=== PATIENT | male | born 1950 | race Caucasian/White ===

== ENCOUNTER → 2019-04-21 13:52 | Outpatient (BNVA) | payer MEDICARE, OTHER, SELFPAY | PROVIDERS: Family Provider Family Medicine; PCP Family Medicine; Visit Provider Specialist | DX: G43.711 Chronic migraine without aura, intractable, with status migrainosus (principal); Z87.891 Personal history of nicotine dependence | CPT/HCPCS: 64615; J0585 ==

== ENCOUNTER → 2019-07-28 13:55 | Outpatient (BNVA) | payer MEDICARE, OTHER, SELFPAY | PROVIDERS: Family Provider Family Medicine; PCP Family Medicine; Visit Provider Specialist | DX: G43.711 Chronic migraine without aura, intractable, with status migrainosus (principal) | CPT/HCPCS: 64615; J0585 ==

== ENCOUNTER → 2019-10-17 09:05 | Outpatient (BNVA) | payer MEDICARE, OTHER, SELFPAY | PROVIDERS: Family Provider Family Medicine; PCP Family Medicine; Visit Provider Specialist | DX: Z85.46 Personal history of malignant neoplasm of prostate; R39.9 Unspecified symptoms and signs involving the genitourinary system | CPT/HCPCS: 81001; 84153 ==

== ENCOUNTER → 2019-11-11 09:59 | Outpatient (BNVA) | payer MEDICARE, OTHER, SELFPAY | PROVIDERS: Family Provider Family Medicine; PCP Family Medicine; Visit Provider Specialist | DX: G43.711 Chronic migraine without aura, intractable, with status migrainosus (principal) | CPT/HCPCS: 64615; 96372; J0585; J1885 ==

== ENCOUNTER → 2020-02-09 10:52 | Outpatient (BNVA) | payer MEDICARE, OTHER, SELFPAY | PROVIDERS: Family Provider Family Medicine; PCP Family Medicine; Visit Provider Specialist | DX: G43.711 Chronic migraine without aura, intractable, with status migrainosus (principal); Z87.891 Personal history of nicotine dependence | CPT/HCPCS: 64615; 99213; J0585 ==

== ENCOUNTER 2020-02-17 16:14 | Outpatient (CLI) | payer MEDICARE, OTHER, SELFPAY ==
--- NOTE | 2020-02-17 16:22 | MR_ITS ---
WS: [id number] MRI THORACIC SPINE WITHOUT CONTRAST TECHNIQUE: Sagittal T1, T2 and STIR imaging. Axial T2 imaging. Noncontrast imaging obtained. CLINICAL INFORMATION: THORACIC PAIN COMPARISON: None. FINDINGS: Mild thoracic curve. Mild thoracic kyphosis. No acute compression fractures. Disc space heights and v ertebral body heights well-preserved. Mild bilateral T10-11 bony foraminal narrowing. Mild disc bulging T11-T12 with slight effacement of v entral thecal sac. Mild right foraminal narrowing at this level. Moderate facet arthropathy lower tho racic spine. Mild central canal stenosis at L1-2 with mild bilateral foraminal narrowing. Normal thoracic aorta. Adrenal glands are normal. Right renal cyst measuring 3.1 CM. MR/MR thoracic spin wo con* [id number] IMPRESSION: 1. Mild thoracic curve. No acute compression. No high-grade central canal sten osis. 2. Cord signal is normal. 3. Disc space heights and vertebral body heights are well preserved. No acute compression fractures. 4. Mild disc bulging T11-T12 with slight effacement of ventral thecal sac. Mil d right T11-T12 foraminal narrowing. 5. Mild central canal stenosis L1-2 with mild bilateral foraminal narrowing le ft greater than right.
--- NOTE | 2020-02-17 17:00 | XRR_ITS ---
PROCEDURE INFORMATION: Exam: XR Lumbosacral Spine, 2 or 3 Views Exam date and time: 02/17/2020 5:34 PM Age: 69 years old Clinical indication: Low back pain; Additional info: Lumbar spondylolisthesis TECHNIQUE: Imaging protocol: XR of the lumbosacral spine, 2 or 3 views. COMPARISON: MRI Lumbar Spine w/o [id number] 12/10/2018 2:19 PM FINDINGS: Bones/joints: No visible acute osseous abnormality or fracture. No visible spondylolysis or spondylolisthesis. Degenerative disease and degenerative disc disease throughout most advanced L3/L4 and L4/L5. Facet arthrosis. Soft tissues: Unremarkable for age. XR/XR lumbar spine f/e only [id number] IMPRESSION: Nonacute.
== END 2020-02-17 16:15 | disposition home or self-care (01) ==
LOC: RADSHAW 16:18
PROVIDERS: Family Provider Family Medicine; PCP Family Medicine; Visit Provider Anesthesiology Pain Medicine
DX: M43.16 Spondylolisthesis, lumbar region (principal); M51.24 Other intervertebral disc displacement, thoracic region; M48.061 Spinal stenosis, lumbar region without neurogenic claudication
CPT/HCPCS: 72120; 72146

== ENCOUNTER → 2020-02-28 10:28 | Outpatient (BNVA) | payer MEDICARE, OTHER, SELFPAY | PROVIDERS: Family Provider Family Medicine; PCP Family Medicine; Referring Provider Specialist; Visit Provider Anesthesiology Pain Medicine | DX: M54.2 Cervicalgia (principal); M54.9 Dorsalgia, unspecified | CPT/HCPCS: 99204 ==

== ENCOUNTER 2020-02-29 09:38 | Outpatient (CLI) | payer MEDICARE, OTHER, SELFPAY ==
--- NOTE | 2020-02-29 10:03 | MR_ITS ---
WS: [id number] MRI LUMBAR SPINE NONCONTRAST TECHNIQUE: Sagittal T1, T2 and STIR imaging. Axial T1 and T2 imaging. CLINICAL INFORMATION: LUMBAR SPINAL STENOSIS COMPARISON: MRI 9 6 60 FINDINGS: Left convex lumbar scoliosis. No acute compression.Moderate central canal stenosis L2-L3, L3-L4, appe ars unchanged. Slight retrolisthesis L1 on L2, L2 on L3, L3 on L4. Disc space narrowing worse L4-5. A lignment is unchanged since 2019 L1-L2: Mild disc bulging with narrowing of the left subarticular recess. Impingement on traversing le ft L2 nerve root. Moderate facet arthropathy. Mild left and no significant right foraminal narrowing. L2-L3: Mild disc bulging with osteophytic ridging. Moderate facet arthropathy ligament flavum hypertr ophy. Moderate central canal stenosis. Left foraminal protrusion L2-3 with moderate left foraminal na rrowing. Right foramen is patent. L3-L4: Disc osteophyte complex with endplate ridging. Impingement traversing right L4 nerve root. Mod erate central canal stenosis. Severe right and mild left foraminal narrowing. L4-L5: Mild disc osteophytic ridging. Narrowing of the right subarticular recess with impingement tra versing right L5 nerve root. Moderate right foraminal narrowing. Mild left foraminal narrowing. Moder ate facet arthropathy. L5-S1: Mild disc bulging with osteophytic ridging. Moderate left and no significant right foraminal n arrowing. Mild facet arthropathy. Visualized pelvic bony structures: Normal. Paravertebral soft tissues: Normal. MR/MR lumbar spine wo con* [id number] IMPRESSION: 1. Overall no significant changes since 2019. 2. Lumbar scoliosis. No acute compression fractures. 3. Mild central canal stenosis L1-2 and moderate central canal stenosis L2-L3 and L3-L4 worse at L2-3 unchanged from previous. 4. Multilevel bony foraminal narrowing worse at left L2-3, right L3-4, right L 4-5, and left L5-S1. 5. Impingement on the left subarticular recess at L1-2. 6. Disc bulging L3-4 with impingement on traversing right L4 nerve root . 7. Mild disc bulging with impingement on the right L4-5 subarticular recess an d traversing right L5 nerve root. 8. Moderate facet arthropathy L2-L3, L3-L4, L4-L5.
== END 2020-02-29 09:39 | disposition home or self-care (01) ==
LOC: RADWPI 09:45
PROVIDERS: PCP Family Medicine; Visit Provider Anesthesiology Pain Medicine
DX: M48.061 Spinal stenosis, lumbar region without neurogenic claudication (principal); M12.88 Other specific arthropathies, not elsewhere classified, other specified site; M51.26 Other intervertebral disc displacement, lumbar region
CPT/HCPCS: 72148

== ENCOUNTER 2020-10-01 19:41 | Emergency (ER) | payer MEDICARE, OTHER, SELFPAY ==
[2020-10-01 20:32] VITALS: BP 139/76; PULSE 61; RESP 18; TEMP 36.9; O2SAT 97; BMI 25.7
--- NOTE | 2020-10-01 20:55 | CTR_ITS ---
PROCEDURE INFORMATION: Exam: CT Abdomen And Pelvis With Contrast Exam date and time: 10/01/2020 8:55 PM Age: 70 years old Clinical indication: Nausea and vomiting and other: Diarrhea; Abdominal pain; Localized; Left lower quadrant (llq); Prior surgery; Surgery type: Gb, hernia, spinal stimulator; Additional info: Llq pain, n/v TECHNIQUE: Imaging protocol: Computed tomography of the abdomen and pelvis with contrast. Radiation optimization: All CT scans at this facility use at least one of these dose optimization techniques: automated exposure control; mA and/or kV adjustment per patient size (includes targeted exams where dose is matched to clinical indication); or iterative reconstruction. Contrast material: OMNI 300; Contrast volume: 95 ml; Contrast route: INTRAVENOUS (IV); COMPARISON: 1. CT abdomen pelvis w con* [id number] 08/14/2017 9:11 PM 2. US Pelvis Lmt [place] Male [id number] 12/02/2017 7:09 AM RADIATION DOSE METRICS: Total DLP (mGy-cm): 1503.51 FINDINGS: Tubes, catheters and devices: Spinal cord stimulator overlies the right hip. Lungs: The lung bases are clear. No effusion Mediastinal space: There is a small hiatal hernia. Liver: Normal. No mass. Gallbladder and bile ducts: There has been a cholecystectomy. Pancreas: Normal. No ductal dilation. Spleen: Normal. No splenomegaly. Adrenal glands: Normal. No mass. Kidneys and ureters: 3 cm right renal cyst. Stomach and bowel: Unremarkable. No obstruction. No mucosal thickening. Appendix: The appendix is partially calcified and fluid-filled. No periappendiceal fat stranding. Intraperitoneal space: Unremarkable. No free air. No significant fluid collection. Vasculature: Mild atherosclerotic disease of the aorta without aneurysm. Lymph nodes: Unremarkable. No enlarged lymph nodes. Urinary bladder: Unremarkable as visualized. Reproductive: Brachytherapy seeds are present in the prostate. Bones/joints: Unremarkable. No acute fracture. Soft tissues: Unremarkable. CT/CT abdomen pelvis w con* [id number] IMPRESSION: 1. Dilated, fluid-filled appendix with calcified wall, consistent with mucocele. 2. There is a small hiatal hernia. 3. Mild atherosclerotic disease of the aorta without aneurysm. COMMENTS: Consistent with the [employer]'s Incidental Findings Committee white paper (J Am Hesham Radiol 2018): Any incidental renal lesion less than 1 cm or classified as too small to characterize, or any incidental cystic renal lesion characterized as simple-appearing, is likely benign. No follow-up imaging is recommended for these lesions per consensus recommendations based on imaging criteria. Radiation Dose CTDIVOL = (mGy): DLP = 1503.51 (mGy-cm)
--- NOTE | 2020-10-01 20:57 | W.ED.ABDPA2 ---
HPI - Abdominal Pain General: Chief Complaint: Abdominal Pain Stated Complaint: ab pain Time Seen by Provider: 10/01/20 20:45 History of Present Illness: HPI narrative: Patient is a 70-year-old male comes to the ED with abdominal pain. Patient has a history of chronic back pain and prostate cancer. Patient says that symptoms started 3 days ago. He says the pain is located in the left lower quadrant of the abdomen and it radiates to his left lower back. Rates the pain currently an 8 out of 10. He says the symptoms get worse when he standing up and moving. He also endorses having some nausea for the past 3 days but had a couple episodes of emesis today. He also endorses having some constipation issues but did take some Dulcolax over the past couple days and had some diarrhea yesterday. Denies any blood in the stool. Denies fever, chills, chest pain, shortness of breath, dysuria or hematuria. Associated Symptoms: Reports constipation, nausea and vomiting; Denies chills, diarrhea, dysuria, fever(s), hematochezia and hematuria Review of Systems Const: Denies: fever(s), chills or fatigue Eyes: Denies: change in vision or eye discomfort ENMT: Denies: throat pain, odynophagia, nasal discharge or nasal congestion Card: Denies: chest pain, palpitations, edema, swelling of feet/ankles, dyspnea on exertion or orthopnea Resp: Denies: dyspnea, productive cough or non-productive cough GI: Reports: abdominal pain, nausea, vomiting and constipation; Denies: diarrhea or hematochezia : Denies: flank pain, difficulty urinating, dysuria or hematuria Musc: Reports: back pain (Chronic); Denies: neck pain or extremity swelling Skin/Breast: Denies: rash or new lesions Neuro: Denies: headache(s), numbness in extremities or weakness in extremities PFSH ED PFSH: Medical History Cervical radiculopathy due to degenerative joint disease of spine Erectile dysfunction History of prostate cancer Lower urinary tract symptoms (LUTS) Lumbar disc disease Spondylolisthesis of cervical region Family History Other CAD (coronary artery disease) Cancer Parkinson disease Social History Smoking and tobacco status: former smoker Alcohol intake: current Alcohol intake frequency: holidays/special occasions only Household members: spouse Marital status: Current occupational status: retired History of recent travel: No Physical Exam Const: COMMON NORMALS: no acute distress, patient oriented x3 and alert GENERAL APPEARANCE: cooperative and comfortable HENMT: COMMON NORMALS: normocephalic HEAD & SCALP: normocephalic MOUTH: Normal oral and palatal mucosa present THROAT: posterior oropharynx normal and uvula midline Neck/C-Spine: COMMON NORMALS: supple GENERAL: Yes normal visual inspection Resp: COMMON NORMALS: normal respiratory effort, No retractions, No use of accessory muscles and clear to auscultation bilaterally AUSCULTATION: clear to auscultation bilaterally Cardio: COMMON NORMALS: regular rate, regular rhythm, S1 normal heart sound present, S2 normal heart sound present, No gallops present (Cardio), No clicks present (Cardio), No murmurs present (Cardio) and Peripheral pulses 2+ throughout RATE: regular rate RHYTHM: regular rhythm HEART SOUNDS: S1 normal heart sound present and S2 normal heart sound present PERIPHERAL PULSES: Peripheral pulses 2+ throughout GI: COMMON NORMALS: Normal to inspection, nondistended, normoactive bowel sounds present, Soft to palpation and no masses PALPATION: Yes Soft to palpation and Yes Tenderness to palpation present (GI) Details: LLQ : BLADDER/KIDNEY EXAM: Yes CVA tenderness on the left Back/Pelvis: GENERAL BACK: Yes CVA tenderness Extremity: COMMON NORMALS: normal to inspection and no pedal edema Neuro: COMMON NORMALS: patient oriented x3 SENSORIUM/ORIENTATION: Yes alert GAIT: Yes Normal gait present Skin: GENERAL SKIN EXAM: dry skin Course Consultations: Consultation #1: I contacted Dr. Ruiz to tell him about patient case and the CT findings of mucocele of appendix. He recommended patient have outpatient follow-up with him for further evaluation. Vital Signs: Vital signs: Vital Signs Temperature 98.5 F 10/01/20 20:32 Pulse Rate 68 10/01/20 23:46 Respiratory Rate 16 10/01/20 23:46 Blood Pressure 118/70 10/01/20 23:46 Pulse Oximetry 98 10/01/20 23:46 MDM - Abdominal Pain MDM Narrative: Medical decision making narrative: Patient is a 70-year-old male comes to the ED with left lower quadrant abdominal pain. He also is having some episodes of nausea and vomiting. Exam findings showed a nontoxic appearing male lying comfortably on exam bed. He has some left lower quadrant abdominal tenderness with some left CVA tenderness as well. Vitals stable. Labs are unremarkable. CT of abdomen showed a mucocele of the appendix and no other acute findings. Contact Dr. Ruiz and told outpatient case and he recommended to have patient follow-up with him at his clinic. I placed order with pillowcase cleaner for patient to be referred to Dr. Ruiz for follow-up. Patient symptoms were controlled with IV fluids, morphine and Zofran. Patient was diagnosed with abdominal pain and mucocele of the appendix. Patient was sent home with a prescription for Zofran and a written prescription for [place] 5-325 mg number 8 tablets dispensed. I told patient that case management will be contacting him in the next several days set up appoint with general surgery. Return to ED precautions given. Patient understood and agreed with plan. Lab Data: Attestation: I reviewed the patient's lab results. Labs: Lab Results 10/01/20 10/01/20 10/01/20 Range/Units 20:59 20:59 21:15 WBC 8.0 (4.0-10.0) 10^3/ uL RBC 4.32 (4.1-5.3) 10^6/u L Hgb 14.2 (11.7-16.6) g/dL Hct 42.6 (42.0-52.0) % MCV 98.6 H (80-94) fL MCH 32.9 (28.0-34.0) pg MCHC 33.3 (30.0-36.0) g/dL RDW 12.8 (12.1-15.1) % Plt Count 212 (130-400) 10^3/c mm MPV 10.8 H (7.4-10.4) fL Neut % (Auto) 75.9 % Lymph % (Auto) 17.2 % Graham % (Auto) 6.1 % Eos % (Auto) 0.1 % Baso % (Auto) 0.6 % Neut # (Auto) 6.08 (1.8-7.7) 10^3/u L Lymph # (Auto) 1.4 (0.8-4.8) 10^3/u L Graham # (Auto) 0.5 (0.2-0.9) 10^3/u L Eos # (Auto) 0.0 (0.0-0.8) 10^3/u L Baso # (Auto) 0.1 (0.0-0.1) 10^3/u L Nucleated RBC % (a uto) 0 % Nucleated RBCs # 0.0 /100WBC Sodium 142 (136-145) mmol/L Potassium 3.8 (3.5-5.1) mmol/L Chloride 105 (98-107) mmol/L Carbon Dioxide 26 (22-29) mmol/L Anion Gap 14.8 (5-19) BUN 14 (8-23) mg/dL Creatinine 0.8 (0.7-1.2) mg/dL GFR Calculation 96.1 (90-130) mL/min Glucose 92 (65-115) mg/dL Calculated Osmolal ity 294 (285-295) mOsm/k g Calcium 9.1 (8.5-10.5) mg/dL Total Bilirubin 1.5 H (0.15-1.2) mg/dL AST 21 (0-40) U/L ALT 15 (0-41) U/L Alkaline Phosphata se 93 (40-130) IU/L Total Protein 6.8 (6.6-8.7) g/dL Albumin 4.3 (3.5-5.2) g/dL Globulin 2.5 (1.3-4.6) g/dL Lipase 13 (13-60) U/L Urine Color Yellow (Yellow) Urine Appearance Clear (CLEAR) Urine pH 5 (5-7) Ur Specific Gravit y 1.020 (1.005-1.030) Urine Protein Neg (Negative) Urine Glucose (UA) Norm (Normal) Urine Ketones 1+ H (Negative) Urine Blood Neg (Negative) Urine Nitrate Negative (Negative) Urine Bilirubin Neg (Negative) Urine Urobilinogen 1 H (Negative) mg/dL Ur Leukocyte Bernarda ase Negative (Negative) Imaging Data ^: CT Abd/Pel: Attestation: I personally reviewed and interpreted this imaging study as follows: Radiologist's impression: [address] [address] [address] Scan Report Signed Patient: Yuri Ryan Unit #: [id number] : 1950 Age/Sex: 70 / M ADM Date: 10/01/20 Loc: ER Room/Bed: Attending Dr: Ordering Provider/Ordering MD: Mike Walsh Date of Service: 10/01/20 Procedure(s): CT abdomen pelvis w con* [id number] Accession Number(s): [id number] Report Number: [id number] PROCEDURE INFORMATION: Exam: CT Abdomen And Pelvis With Contrast Exam date and time: 10/01/2020 8:55 PM Age: 70 years old Clinical indication: Nausea and vomiting and other: Diarrhea; Abdominal pain; Localized; Left lower quadrant (llq); Prior surgery; Surgery type: Gb, hernia, spinal stimulator; Additional info: Llq pain, n/v TECHNIQUE: Imaging protocol: Computed tomography of the abdomen and pelvis with contrast. Radiation optimization: All CT scans at this facility use at least one of these dose optimization techniques: automated exposure control; mA and/or kV adjustment per patient size (includes targeted exams where dose is matched to clinical indication); or iterative reconstruction. Contrast material: OMNI 300; Contrast volume: 95 ml; Contrast route: INTRAVENOUS (IV); COMPARISON: 1. CT abdomen pelvis w con* [id number] 08/14/2017 9:11 PM 2. US Pelvis Lmt or Male [id number] 12/02/2017 7:09 AM RADIATION DOSE METRICS: Total DLP (mGy-cm): 1503.51 FINDINGS: Tubes, catheters and devices: Spinal cord stimulator overlies the right hip. Lungs: The lung bases are clear. No effusion Mediastinal space: There is a small hiatal hernia. Liver: Normal. No mass. Gallbladder and bile ducts: There has been a cholecystectomy. Pancreas: Normal. No ductal dilation. Spleen: Normal. No splenomegaly. Adrenal glands: Normal. No mass. Kidneys and ureters: 3 cm right renal cyst. Stomach and bowel: Unremarkable. No obstruction. No mucosal thickening. Appendix: The appendix is partially calcified and fluid-filled. No periappendiceal fat stranding. Intraperitoneal space: Unremarkable. No free air. No significant fluid collection. Vasculature: Mild atherosclerotic disease of the aorta without aneurysm. Lymph nodes: Unremarkable. No enlarged lymph nodes. Urinary bladder: Unremarkable as visualized. Reproductive: Brachytherapy seeds are present in the prostate. Bones/joints: Unremarkable. No acute fracture. Soft tissues: Unremarkable. CT/CT abdomen pelvis w con* [id number] IMPRESSION: 1. Dilated, fluid-filled appendix with calcified wall, consistent with mucocele. 2. There is a small hiatal hernia. 3. Mild atherosclerotic disease of the aorta without aneurysm. COMMENTS: Consistent with the [employer]'s Incidental Findings Committee white paper (J Am Hesham Radiol 2018): Any incidental renal lesion less than 1 cm or classified as too small to characterize, or any incidental cystic renal lesion characterized as simple-appearing, is likely benign. No follow-up imaging is recommended for these lesions per consensus recommendations based on imaging criteria. Radiation Dose CTDIVOL = (mGy): DLP = 1503.51 (mGy-cm) Dictated By: Joseph Fernandez Signed By: Joseph Fernandez Signed Date/Time: 10/01/202232 DD/ 31 Discharge Plan Discharge Patient Disposition: Home Clinical Impression: Mucocele of appendix Abdominal pain Qualifiers: Abdominal location: left lower quadrant Qualified Code(s): R10.32 - Left lower quadrant pain Condition: Stable Prescriptions: New ondansetron 4 mg tablet,disintegrating 4 mg PO Q8H PRN (Reason: nausea and vomiting) Qty: 15 RF: 0 No Action Botox 100 unit recon soln SUBCUT RF: 0 gabapentin 600 mg tablet 600 mg PO QDAY RF: 0 ropinirole 0.5 mg tablet 0.5 mg PO QDAY RF: 0 Zyrtec 10 mg capsule PO RF: 0 ibuprofen [IBU] 800 mg tablet 800 mg PO Q6H RF: 0 meclizine 25 mg tablet 25 mg PO BID RF: 0 pantoprazole 40 mg tablet,delayed release (DR/EC) 40 mg PO QDAY RF: 0 sumatriptan succinate 50 mg tablet 50 mg PO ONCE RF: 0 tamsulosin 0.4 mg capsule 0.4 mg PO QDAY RF: 0 fluticasone furoate 50 mcg/actuation blister with device INHALATION RF: 0 sildenafil 100 mg tablet See Rx Instructions .Route .COMPLEX Qty: 20 RF: 6 Discharge Orders: Discharge ED (Routine); Ordered 10/01/20 Ordered By: Mike Walsh Referrals: Dalia Mo MD [Primary Care Provider] - Discharge Diet: Regular Discharge Activity: Increase activity as tolerated Patient Instructions: Abdominal Pain (ED) Activity Restrictions/Additional Instructions: Follow-up with medical provider as directed. Case management should be contacting you in the next several days to set up an appointment with general surgery for reevaluation. Continue taking home medications as prescribed. Return to the ER or your medical provider if condition worsens. Please read and understand discharge instructions. Thank you for choosing [facility] for your healthcare needs today. Please realize this is an emergency room and that we are providing you with a medical screening exam and this may not be complete and all inclusive of all the testing and or work up that you may need to determine your ailment or severity of your illness. It is very important that you follow up as instructed or that you return to the Emergency Department should you have concerns or if your condition changes or worsens in any way. Coding Level of Care Code ED Organizational Effectiveness Consultant for Chg Fwd Exam Comprehensive
[2020-10-01 21:02] LABS: Basophils # 0.1 10^3/uL (0.0-0.1); Basophils % 0.6 %; Eosinophils % 0.1 %; Hematocrit 42.6 % (42.0-52.0); Hemoglobin 14.2 g/dL (11.7-16.6); Lymphocytes # 1.4 10^3/uL (0.8-4.8); Lymphocytes % 17.2 %; Mean Corpuscular HGB Conc 33.3 g/dL (30.0-36.0); Mean Corpuscular Hemoglobin 32.9 pg (28.0-34.0); Mean Corpuscular Volume 98.6 fL (80-94); Mean Platelet Volume 10.8 fL (7.4-10.4); Monocytes # 0.5 10^3/uL (0.2-0.9); Monocytes % 6.1 %; Neutrophils # 6.08 10^3/uL (1.8-7.7); Neutrophils % 75.9 %; Nucleated Red Blood Cells % 0 %; Platelet Count 212 10^3/cmm (130-400); Red Blood Count 4.32 10^6/uL (4.1-5.3); Red Cell Distribution Width 12.8 % (12.1-15.1)
[2020-10-01] MEDS: ondansetron 2 mg/ML SDV 2 mL 4 MG IVP (21:13)
[2020-10-01] MEDS: sodium chloride 0.9% 1,000 ML 999 ML IV (21:13)
[2020-10-01 21:14] VITALS: RESP 18; O2SAT 99
[2020-10-01] MEDS: morphine 4 mg/mL SDV 1 mL IVP ×2 (21:14→22:05)
[2020-10-01 21:16] VITALS: BP 146/77; PULSE 60; RESP 18; O2SAT 99
[2020-10-01 21:19] LABS: Alanine Aminotransferase 15 U/L (0-41); Albumin Level 4.3 g/dL (3.5-5.2); Alkaline Phosphatase 93 IU/L (40-130); Anion Gap 14.8 (5-19); Aspartate Amino Transferase 21 U/L (0-40); Blood Urea Nitrogen 14 mg/dL (8-23); Calcium 9.1 mg/dL (8.5-10.5); Carbon Dioxide 26 mmol/L (22-29); Chloride 105 mmol/L (98-107); Globulin 2.5 g/dL (1.3-4.6); Glomerular Filtration Rate 96.1 mL/min (90-130); Glucose 92 mg/dL (65-115); Lipase 13 U/L (13-60); Osmolality Calculated 294 mOsm/kg (285-295); Potassium 3.8 mmol/L (3.5-5.1); Sodium 142 mmol/L (136-145); Total Bilirubin 1.5 mg/dL (0.15-1.2); Total Protein 6.8 g/dL (6.6-8.7)
[2020-10-01 21:31] LABS: Add Urine Microscopic? NO; Charge for UA Resulting for Rev
[2020-10-01 21:38] LABS: Bilirubin Urine Neg (Negative); Blood Urine Neg (Negative); Glucose Urine UA Norm (Normal); Ketones Urine 1+ (Negative); Leukocyte Esterase Urine Negative (Negative); Nitrate Urine Negative (Negative); Protein Urine Neg (Negative); Urine Appearance Clear (CLEAR); Urine Color Yellow (Yellow); Urobilinogen Urine 1 mg/dL (Negative); pH Urine 5 (5-7)
[2020-10-01] MEDS: iohexol 300 mg/mL 100 mL Btl IV (21:44)
[2020-10-01 22:05] VITALS: RESP 18; O2SAT 97
[2020-10-01 22:10] VITALS: BP 157/83; PULSE 55; RESP 18; O2SAT 94
[2020-10-01 23:46] VITALS: BP 118/70; PULSE 68; RESP 16; O2SAT 98
--- NOTE | 2020-10-02 08:13 | PC.SOCIAL ---
Gen surgery emailed regarding referral per Dr Walsh to for Mucocele Appendix.
--- NOTE | 2020-10-17 13:52 | DCPLANNER ---
Patient had a follow up appointment scheduled for 10.12.[address] Ruiz at [facility] General Surgery - patient did attend appointment.
== END 2020-10-02 | disposition home or self-care (01) ==
PROVIDERS: Emergency Medicine; Emergency Provider Physician Assistant; PCP Family Medicine
DX: R10.32 Left lower quadrant pain (principal); K38.8 Other specified diseases of appendix; Z85.46 Personal history of malignant neoplasm of prostate; Z87.891 Personal history of nicotine dependence
CPT/HCPCS: 74177; 80053; 81003; 83690; 85025; 96361; 96374; 96375; 96376; 99284; J2270; J2405; J7030; Q9967

== ENCOUNTER → 2020-10-12 12:25 | Outpatient (BNVA) | payer MEDICARE, OTHER, SELFPAY | PROVIDERS: PCP Family Medicine; Visit Provider Surgery | DX: K38.8 Other specified diseases of appendix (principal); Z20.822 Contact with and (suspected) exposure to COVID-19 | CPT/HCPCS: 87635 ==

== ENCOUNTER 2020-10-18 07:10 | Day surgery (SDC) | payer MEDICARE, OTHER, SELFPAY ==
[2020-10-17 09:48] VITALS: BMI 24.7
[2020-10-18] VITALS (8 sets, daily range): BP systolic 98–130; BP diastolic 44–75; PULSE 55–68; RESP 13–20; TEMP 36.2–36.7; O2SAT 92–97
--- NOTE | 2020-10-18 07:43 | W.PM.OPSUD ---
Surgery/Procedure H&P Update DATE OF PROCEDURE: October 18, 2020 DATE H&P PERFORMED: 10/12/20 H&P UPDATE INFORMATION: I have reviewed H&P completed within last 30 days, I have examined patient prior to procedure and No changes to prior documentation PREOP DIAGNOSIS: Mucocele appendix PLANNED PROCEDURE: Operation Date: 10/18/20 08:35 Proposed Procedures p Laparoscopic Appendectomy 50527 K38.8(Not Applicable) - Freeman Ruiz MD
[2020-10-18] MEDS: scopolamine 1.5 Patch 1 PATCH TRANSDERMA (07:49)
[2020-10-18] MEDS: sodium chloride 0.9% 1,000 ML 30 ML IV (07:49)
--- NOTE | 2020-10-18 08:04 | ANES.PREANE2 ---
Pre-Anesthetic Assessment Pre-Anesthetic Assessment: Height/Weight: Height 1.83 m Weight 82.554 kg Temp Pulse Resp BP Pulse Ox 98.1 F 67 18 130/75 97 10/18/20 07:29 10/18/20 07:29 10/18/20 07:29 10/18/20 07:29 10/18/20 07:29 Preop Diagnosis: Mucocele appendix Proposed Procedure: Operation Date: 10/18/20 08:35 Proposed Procedures p Laparoscopic Appendectomy 65794 K38.8(Not Applicable) - Freeman Ruiz MD Was Beta Minnie taken within 24 hours: N/A Last intake: Intake Last Liquid Date 10/17/20 Last Liquid Time 17:30 Last Solid Date 10/17/20 Last Solid Time 17:30 Social: Social History: No alcohol and No tobacco Exam: Pre-Anes Outpt Exam: alert, oriented x 3, clear to auscultation bilaterally and regular rate & rhythm Airway: Submandibular: WNL Cervical ROM: WNL MP: 2 Dentition: Full GI: GI: GERD Musc/skel: Musc/skel: Lower Back Pain Neuropsych: Neuropsych: OTOOLE Anesthetic Plan: ASA status: 2 Anesthesia: General Risk of > 500 ml blood loss (7ml/kg in children): No Meds/Allergies Current Medications: Current Medications Generic Name Dose Route Start Last Admin Trade Name Freq PRN Reason Stop Dose Admin Sodium Chloride 1,000 mls @ 30 ml s/hr 10/18/20 07:30 10/18/20 07:49 Sodium Chloride 0.9% IV 10/19/20 07:29 30 mls/hr .Q24H ARIE Administration PFSH Anesthesia PFSH: Medical History (Updated 10/12/20 @ 11:56 by Freeman Ruiz MD) Cervical radiculopathy due to degenerative joint disease of spine Chronic migraine without aura, intractable, with status migrainosus Erectile dysfunction History of cholesteatoma History of prostate cancer Lower urinary tract symptoms (LUTS) Lumbar disc disease Sensorineural hearing loss, bilateral Spinal cord stimulator status Spondylolisthesis of cervical region Surgical History (Updated 10/12/20 @ 11:56 by Freeman Ruiz MD) History of carpal tunnel release of both wrists History of cholecystectomy History of repair of hiatal hernia History of tonsillectomy Status post left inguinal hernia repair Family History Other CAD (coronary artery disease) Cancer Parkinson disease Social History Smoking and tobacco status: never smoked Alcohol intake: current Alcohol intake frequency: holidays/special occasions only Household members: spouse Marital status: Current occupational status: retired History of recent travel: No Data Anesthesia Cardiac Studies: No Data to Display
--- NOTE | 2020-10-18 08:51 | PM.OP ---
Operative Report Date of procedure: October 18, 2020 Pre-op Diagnosis: Mucocele appendix Post-op diagnosis: same Procedure Done: Laparoscopic appendectomy Pathology: appendix Surgeon: Freeman Ruiz Anesthesia: General Condition: stable Disposition: PACU Procedure: The patient was taken to the Operating Room and intubated under general anesthesia after antibiotic had been administered. Using a 15 blade, a 1-cm infraumbilical incision was made and using open Neha technique, the peritoneal cavity was entered. A 12mm port with balloon was placed and 14 mm of pneumoperitoneum was created and 10-mm 30 degree scope was introduced. Two separate 5mm ports were placed in the left and right lower quadrant under direct visualization. The appendix was noted in the right lower quadrant and appeared acutely inflamed.. Using [place] forceps, an opening was made in the mesoappendix near the base of the appendix. An Endo ROLF stapler 45mm long 3.5mm blue load was introduced to divide the appendix at it's base. Using electrocautery, the mesoappendix including the appendicular artery was divided. There was no bleeding noted and the staple line appeared intact. The right lower quadrant was irrigated with saline and an EndoCatch bag was introduced to remove the appendix. All three ports were removed under direct visualization and there was no bleeding noted on the port sites. 10 0.5% Marcaine was infiltrated at the port sites. The fascia at the umbilical port was closed using figure of eight 0-Vicryl sutures and subcutaneous tissue was approximated using 3-0 Vicryl and skin at all 3 port sites was closed using 4-0 Monocryl and Dermabond.
--- NOTE | 2020-10-18 09:04 | SUR.PHASEI ---
0857 PT TO PACU SLEEPY WITH GOOD RESP NOTED PT OPENS EYES TO VOICE BUT QUICKLY BACK TO SLEEP ABD SOFT 3 SITES D/I
[2020-10-18] MEDS: ondansetron 2 mg/ML SDV 2 mL 4 MG IVP (09:09)
[2020-10-18] MEDS: meperidine 50 mg/mL INJ 12.5 MG IVP (09:31)
[2020-10-18] MEDS: HYDROcodone-acetaminophen 5-325 mg Tablet 1 TAB PO (10:23)
--- NOTE | 2020-10-18 16:38 | ANE.PACU2 ---
Inpatient post-anesthesia follow up: Airway intact: Yes Vital signs: Temperature 97.4 F Pulse Rate 56 Respiratory Rate 20 Blood Pressure 112/63 Pulse Oximetry 94 Oxygen Delivery Me thod Nasal Cannula Oxygen Flow Rate 2 Fraction of Inspir ed Oxygen Hydration adequate: Yes Nausea and vomiting: No Pain level: 2 Mental status: Baseline
== END 2020-10-18 10:47 | disposition home or self-care (01) ==
PROVIDERS: PCP Family Medicine; Visit Provider Surgery
PROC: 0DTJ4ZZ Resection of Appendix, Percutaneous Endoscopic Approach (ICD-10-PCS; CPT 44970; principal; 2020-10-18 08:25)
DX: K38.8 Other specified diseases of appendix (principal); K21.9 Gastro-esophageal reflux disease without esophagitis; Z82.49 Family history of ischemic heart disease and other diseases of the circulatory system; Z85.46 Personal history of malignant neoplasm of prostate
CPT/HCPCS: 44970; 88304; 96365; 96374; J0690; J1100; J2175; J2250; J2405; J2550; J2704; J2710; J3010; J3490; J7030

== ENCOUNTER → 2021-02-08 15:35 | Outpatient (BNVA) | payer MEDICARE, OTHER, SELFPAY | PROVIDERS: PCP Family Medicine; Visit Provider Surgery | DX: Z20.822 Contact with and (suspected) exposure to COVID-19 (principal); Z11.52 Encounter for screening for COVID-19 | CPT/HCPCS: 87635 ==

== ENCOUNTER 2021-02-14 07:38 | Day surgery (SDC) | payer MEDICARE, OTHER, SELFPAY ==
[2021-02-11 13:01] VITALS: BMI 23.8
[2021-02-14 07:59] VITALS: BP 137/78; PULSE 82; RESP 20; TEMP 36.2; O2SAT 97
[2021-02-14] MEDS: sodium chloride 0.9% 1,000 ML 30 ML IV (08:05)
--- NOTE | 2021-02-14 08:27 | ANES.PREANE2 ---
Pre-Anesthetic Assessment Pre-Anesthetic Assessment: Height/Weight: Height 1.83 m Weight 79.832 kg Temp Pulse Resp BP Pulse Ox 97.1 F L 82 20 H 137/78 97 02/14/21 07:59 02/14/21 07:59 02/14/21 07:59 02/14/21 07:59 02/14/21 07:59 Preop Diagnosis: Mucocele appendix Proposed Procedure: Operation Date: 02/14/21 08:30 Proposed Procedures p EGD [id number] z86.010 k21.9(Not Applicable) - Freeman Ruiz MD s Colonoscopy(Not Applicable) - Freeman Ruiz MD Was Beta Minnie taken within 24 hours: N/A Was Clonidine taken within 24 hours: N/A Last intake: Intake Last Liquid Date 02/13/21 Last Liquid Time 23:30 Last Solid Date 02/12/21 Last Solid Time 21:00 Social: Social History: No alcohol and No tobacco Exam: Pre-Anes Outpt Exam: alert and oriented x 3 Airway: Submandibular: WNL Cervical ROM: Other (limited) MP: 1 Dentition: Full History/ROS: No significant history except as noted Pulmonary: Pulmonary: None reported CV/HEM: CV/HEM: None reported : : None reported Hepatic: Hepatic: None reported GI: GI: GERD Metabolic: Metabolic: None reported Musc/skel: Musc/skel: Lower Back Pain Comments: spinal cord stimulator- currently turned off Neuropsych: Neuropsych: None reported Anesthetic Plan: ASA status: 3 Anesthesia: Anesthesia Evaluation and MAC Risk of > 500 ml blood loss (7ml/kg in children): No Meds/Allergies Current Medications: Current Medications Generic Name Dose Route Start Last Admin Trade Name Freq PRN Reason Stop Dose Admin Sodium Chloride 1,000 mls @ 30 ml s/hr 02/14/21 08:00 02/14/21 08:05 Sodium Chloride 0.9% IV 02/15/21 07:59 30 mls/hr .Q24H ARIE Administration PFSH Anesthesia PFSH: Medical History (Updated 11/06/20 @ 11:50 by Freeman Ruiz MD) Cervical radiculopathy due to degenerative joint disease of spine Chronic migraine without aura, intractable, with status migrainosus Erectile dysfunction GERD (gastroesophageal reflux disease) History of cholesteatoma History of colon polyps History of prostate cancer Lower urinary tract symptoms (LUTS) Lumbar disc disease Sensorineural hearing loss, bilateral Spinal cord stimulator status Spondylolisthesis of cervical region Surgical History (Updated 11/06/20 @ 11:50 by Freeman Ruiz MD) History of carpal tunnel release of both wrists History of cholecystectomy History of repair of hiatal hernia History of tonsillectomy S/P laparoscopic appendectomy (10/18/20) Status post colonoscopy Status post left inguinal hernia repair Family History Other CAD (coronary artery disease) Cancer Parkinson disease Social History Alcohol intake: current Alcohol intake frequency: holidays/special occasions only Household members: spouse Marital status: Current occupational status: retired History of recent travel: No Data Anesthesia Cardiac Studies: No Data to Display
--- NOTE | 2021-02-14 08:44 | P.HP_ITS ---
Same Day Surgery H&P Indication for Procedure/HPI DATE OF PROCEDURE: February 14, 2021 CHIEF COMPLAINT/INDICATIONFOR SURGICAL PROCEDURE: egd/colonoscopy PREOP DIAGNOSIS: Mucocele appendix PLANNED PROCEDRUE: Operation Date: 02/14/21 08:30 Proposed Procedures p EGD [id number] z86.010 k21.9(Not Applicable) - Freeman Ruiz MD s Colonoscopy(Not Applicable) - Freeman Ruiz MD Medications/Allergies* Home Medications Medication Instructions Recorded Confirmed Type cetirizine 10 mg capsule 10 mg PO DAILY 04/21/19 02/14/21 History gabapentin 600 mg tablet 600 mg PO QDAY 04/21/19 02/14/21 History ibuprofen 800 mg tablet 800 mg PO Q6H 04/21/19 02/14/21 History meclizine 25 mg tablet 25 mg PO DAILY 04/21/19 02/14/21 History pantoprazole 40 mg tablet,delayed 40 mg PO QDAY 04/21/19 02/14/21 History release ropinirole 0.5 mg tablet 0.5 mg PO QDAY 04/21/19 02/14/21 History tamsulosin 0.4 mg capsule 0.4 mg PO QDAY 04/21/19 02/14/21 History citalopram 20 mg tablet 20 mg PO DAILY 10/12/20 02/14/21 History fluticasone propionate [Flonase 1 spray INTRANASAL DAILY 10/18/20 02/14/21 History Allergy Relief] Allergies/Adverse Reactions Allergy/AdvReac Type Severity Reaction Status Date / Time vaccine adjuvant system, Allergy Intermediate Hives, Verified 02/14/21 07:52 AS01B liposomal itching [From Shingrix (PF)] varicella-zoster virus Allergy Intermediate Hives, Verified 02/14/21 07:52 glycoprotein E, recombinant itching [From Shingrix (PF)] Current Medications: Generic Name Dose Route Start Last Admin Trade Name Freq PRN Reason Stop Dose Admin Sodium Chloride 1,000 mls @ 30 mls/hr 02/14/21 08:00 02/14/21 08:05 Sodium Chloride 0.9% IV 02/15/21 07:59 30 mls/hr .Q24H ARIE Administration Pertinent History/Comorbid Conditions* Medical History (Updated 11/06/20 @ 11:50 by Freeman Ruiz MD) Cervical radiculopathy due to degenerative joint disease of spine Chronic migraine without aura, intractable, with status migrainosus Erectile dysfunction GERD (gastroesophageal reflux disease) History of cholesteatoma History of colon polyps History of prostate cancer Lower urinary tract symptoms (LUTS) Lumbar disc disease Sensorineural hearing loss, bilateral Spinal cord stimulator status Spondylolisthesis of cervical region Surgical History (Updated 11/06/20 @ 11:50 by Freeman Ruiz MD) History of carpal tunnel release of both wrists History of cholecystectomy History of repair of hiatal hernia History of tonsillectomy S/P laparoscopic appendectomy (10/18/20) Status post colonoscopy Status post left inguinal hernia repair Family History (Updated 04/21/19 @ 16:42 by Analilia Sarkar LPN) CAD (coronary artery disease) Cancer Parkinson disease Social History Alcohol intake: current Alcohol intake frequency: holidays/special occasions only Household members: spouse Marital status: Current occupational status: retired History of recent travel: No Pertinent Exam Findings alert, oriented x 3 and regular rate & rhythm Recommendations Surgery/Procedure today Coding Level of Care Code Acute 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
[2021-02-14 09:12] VITALS: BP 85/58; PULSE 70; RESP 16; TEMP 36.1; O2SAT 93
[2021-02-14 09:28] VITALS: BP 112/69; PULSE 61; RESP 18; O2SAT 96
--- NOTE | 2021-02-14 15:24 | ANE.PACU2 ---
Inpatient post-anesthesia follow up: Airway intact: Yes Vital signs: Temperature 97 F Pulse Rate 61 Respiratory Rate 18 Blood Pressure 112/69 Pulse Oximetry 96 Oxygen Delivery Me thod Room Air Oxygen Flow Rate Fraction of Inspir ed Oxygen Hydration adequate: Yes Nausea and vomiting: No Pain level: 1 Mental status: Baseline
== END 2021-02-14 09:54 | disposition home or self-care (01) ==
PROVIDERS: PCP Family Medicine; Visit Provider Surgery
PROC: 0DJ08ZZ Inspection of Upper Intestinal Tract, Via Natural or Artificial Opening Endoscopic (ICD-10-PCS; CPT 43235; principal; 2021-02-14 08:30)
PROC: 0DJD8ZZ Inspection of Lower Intestinal Tract, Via Natural or Artificial Opening Endoscopic (ICD-10-PCS; CPT 45378; 2021-02-14 08:30)
DX: K38.8 Other specified diseases of appendix (principal); D12.7 Benign neoplasm of rectosigmoid junction; K57.30 Diverticulosis of large intestine without perforation or abscess without bleeding; K64.8 Other hemorrhoids; K29.60 Other gastritis without bleeding; K44.9 Diaphragmatic hernia without obstruction or gangrene; K21.9 Gastro-esophageal reflux disease without esophagitis; Z86.010 Personal history of colon polyps; Z85.46 Personal history of malignant neoplasm of prostate
CPT/HCPCS: 43239; 45380; 88305; 96360; J2704; J7030

== ENCOUNTER 2021-02-22 09:33 | Outpatient (CLI) | payer MEDICARE, OTHER, SELFPAY ==
--- NOTE | 2021-02-22 | XR_ITS ---
WS: [id number] LUMBAR SPINE: 3 VIEWS TECHNIQUE: AP, lateral and L5-S1 spot. 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 Attempted 4 different levels in order to achieve acce ss into the subarachnoid space. Osteophytes were obstructing passage of the needle. At this time no f urther attempts will be performed. Laminectomy defects at L4 and L5. XR/XR lumbar spine 2-3V* [id number] IMPRESSION: Unsuccessful attempt at performing a myelogram. There was significant osteophyt osis and facet joint arthritis obstructing the passage of the needle.
== END 2021-02-22 09:34 | disposition home or self-care (01) ==
LOC: RAD 09:34
PROVIDERS: PCP Family Medicine; Visit Provider Specialist
DX: M50.022 Cervical disc disorder at C5-C6 level with myelopathy (principal)
CPT/HCPCS: 62302; 72040; 72100

== ENCOUNTER 2021-05-31 14:37 | Outpatient (CLI) | payer MEDICARE, OTHER, SELFPAY ==
--- NOTE | 2021-05-31 14:46 | XR_ITS ---
WS: [id number] Exam: XR cervical spine 4-5V [id number] Date/Time of Exam: 05/31/2021 2:54 PM Reason For Exam: CERVICAL DISC DISORDER Comparison 11/16/2018. No fracture or dislocation. Degenerative changes and spondylosis from C5 to C7. Facet DJD at all leve ls. No flexion or extension instability. The odontoid is intact. Normal paraspinal soft tissues. XR/XR cervical spine 4-5V [id number] IMPRESSION: 1. No fracture or instability. 2. Degenerative disc changes and spondylosis from C5 to C7. Facet DJD at all le vels.
== END 2021-05-31 14:38 | disposition home or self-care (01) ==
PROVIDERS: PCP Family Medicine; Visit Provider Specialist
DX: M50.022 Cervical disc disorder at C5-C6 level with myelopathy (principal); M47.812 Spondylosis without myelopathy or radiculopathy, cervical region
CPT/HCPCS: 72050

== ENCOUNTER → 2021-12-03 09:31 | Outpatient (BNVA) | payer MEDICARE, OTHER, SELFPAY | PROVIDERS: PCP Family Medicine; Visit Provider Anesthesiology Pain Medicine | DX: M47.22 Other spondylosis with radiculopathy, cervical region (principal); M50.90 Cervical disc disorder, unspecified, unspecified cervical region; M51.9 Unspecified thoracic, thoracolumbar and lumbosacral intervertebral disc disorder; M79.601 Pain in right arm; M79.602 Pain in left arm; Z87.891 Personal history of nicotine dependence; Z79.891 Long term (current) use of opiate analgesic | CPT/HCPCS: 99204 ==

== ENCOUNTER → 2021-12-23 13:21 | Outpatient (BNVA) | payer MEDICARE, OTHER, SELFPAY | PROVIDERS: PCP Family Medicine; Visit Provider Anesthesiology Pain Medicine | DX: M54.12 Radiculopathy, cervical region (principal); Z87.891 Personal history of nicotine dependence | CPT/HCPCS: 62321; J1100 ==

== ENCOUNTER 2021-12-26 15:39 | Outpatient (CLI) | payer MEDICARE, OTHER, SELFPAY ==
[2021-12-26 17:10] LABS: Prostate Specific AG Urology < 0.01 ng/mL (0-4)
== END 2021-12-26 15:40 | disposition home or self-care (01) ==
LOC: LAB 15:42
PROVIDERS: PCP Family Medicine; Visit Provider Urology
DX: Z85.46 Personal history of malignant neoplasm of prostate (principal)
CPT/HCPCS: 84153

== ENCOUNTER → 2021-12-31 15:06 | Outpatient (BNVA) | payer MEDICARE, OTHER, SELFPAY | PROVIDERS: PCP Family Medicine; Visit Provider Urology | DX: R39.9 Unspecified symptoms and signs involving the genitourinary system (principal); Z85.46 Personal history of malignant neoplasm of prostate | CPT/HCPCS: 51798; 99213 ==

== ENCOUNTER → 2022-01-01 15:33 | Outpatient (BNVA) | payer MEDICARE, OTHER, SELFPAY | PROVIDERS: PCP Family Medicine; Visit Provider Urology | DX: R39.9 Unspecified symptoms and signs involving the genitourinary system (principal); Z85.46 Personal history of malignant neoplasm of prostate | CPT/HCPCS: 81003 ==

== ENCOUNTER → 2022-01-06 09:15 | Outpatient (BNVA) | payer MEDICARE, OTHER, SELFPAY | PROVIDERS: PCP Family Medicine; Visit Provider Anesthesiology Pain Medicine | DX: M47.22 Other spondylosis with radiculopathy, cervical region (principal); M50.90 Cervical disc disorder, unspecified, unspecified cervical region; M51.9 Unspecified thoracic, thoracolumbar and lumbosacral intervertebral disc disorder; M79.601 Pain in right arm; M79.602 Pain in left arm; Z87.891 Personal history of nicotine dependence | CPT/HCPCS: 99213 ==

== ENCOUNTER → 2022-05-21 09:08 | Outpatient (BNVA) | payer MEDICARE, OTHER, SELFPAY | PROVIDERS: PCP Family Medicine; Visit Provider Anesthesiology Pain Medicine | DX: M51.9 Unspecified thoracic, thoracolumbar and lumbosacral intervertebral disc disorder (principal); M47.22 Other spondylosis with radiculopathy, cervical region; M50.90 Cervical disc disorder, unspecified, unspecified cervical region; M79.601 Pain in right arm; M79.602 Pain in left arm | CPT/HCPCS: 99214 ==

== ENCOUNTER → 2022-06-09 14:01 | Outpatient (BNVA) | payer MEDICARE, OTHER, SELFPAY | PROVIDERS: PCP Family Medicine; Visit Provider Anesthesiology Pain Medicine | DX: M54.12 Radiculopathy, cervical region (principal) | CPT/HCPCS: 62321; J1100 ==

== ENCOUNTER → 2022-06-30 12:04 | Outpatient (BNVA) | payer MEDICARE, OTHER, SELFPAY | PROVIDERS: PCP Family Medicine; Visit Provider Anesthesiology Pain Medicine | DX: M51.9 Unspecified thoracic, thoracolumbar and lumbosacral intervertebral disc disorder (principal); M47.896 Other spondylosis, lumbar region; M47.22 Other spondylosis with radiculopathy, cervical region; M50.90 Cervical disc disorder, unspecified, unspecified cervical region; M79.601 Pain in right arm; M79.602 Pain in left arm | CPT/HCPCS: 72110; 99214 ==

== ENCOUNTER → 2022-07-17 14:16 | Outpatient (BNVA) | payer MEDICARE, OTHER, SELFPAY | PROVIDERS: PCP Family Medicine; Visit Provider Anesthesiology Pain Medicine | DX: M47.812 Spondylosis without myelopathy or radiculopathy, cervical region (principal) | CPT/HCPCS: 64490; 64491; 64492; J3490 ==

== ENCOUNTER → 2022-07-30 10:21 | Outpatient (BNVA) | payer MEDICARE, OTHER, SELFPAY | PROVIDERS: PCP Family Medicine; Visit Provider Podiatrist Foot & Ankle Surgery | DX: M21.6X1 Other acquired deformities of right foot (principal); M20.21 Hallux rigidus, right foot; M20.41 Other hammer toe(s) (acquired), right foot | CPT/HCPCS: 73630; 99204 ==

== ENCOUNTER → 2022-07-31 13:39 | Outpatient (BNVA) | payer MEDICARE, OTHER, SELFPAY | PROVIDERS: PCP Family Medicine; Visit Provider Anesthesiology Pain Medicine | DX: M47.812 Spondylosis without myelopathy or radiculopathy, cervical region (principal) | CPT/HCPCS: 64490; 64491; 64492; J3490 ==

== ENCOUNTER → 2022-08-14 10:31 | Outpatient (BNVA) | payer MEDICARE, OTHER, SELFPAY | PROVIDERS: PCP Family Medicine; Visit Provider Anesthesiology Pain Medicine | DX: M47.22 Other spondylosis with radiculopathy, cervical region (principal); M50.90 Cervical disc disorder, unspecified, unspecified cervical region; M51.9 Unspecified thoracic, thoracolumbar and lumbosacral intervertebral disc disorder; M79.601 Pain in right arm; M79.602 Pain in left arm | CPT/HCPCS: 99215 ==

== ENCOUNTER → 2022-09-15 11:50 | Outpatient (BNVA) | payer MEDICARE, OTHER, SELFPAY | PROVIDERS: PCP Family Medicine; Visit Provider Anesthesiology Pain Medicine | DX: M47.812 Spondylosis without myelopathy or radiculopathy, cervical region (principal) | CPT/HCPCS: 64633; 64634; J1030 ==

== ENCOUNTER → 2022-09-17 10:40 | Outpatient (BNVA) | payer MEDICARE, OTHER, SELFPAY | PROVIDERS: PCP Family Medicine; Visit Provider Podiatrist Foot & Ankle Surgery | DX: M21.6X1 Other acquired deformities of right foot (principal); M20.21 Hallux rigidus, right foot; M20.41 Other hammer toe(s) (acquired), right foot | CPT/HCPCS: 99213 ==

== ENCOUNTER → 2022-10-14 09:01 | Outpatient (BNVA) | payer MEDICARE, OTHER, SELFPAY | PROVIDERS: PCP Family Medicine; Visit Provider Anesthesiology Pain Medicine | DX: M51.9 Unspecified thoracic, thoracolumbar and lumbosacral intervertebral disc disorder (principal); M47.22 Other spondylosis with radiculopathy, cervical region; M50.90 Cervical disc disorder, unspecified, unspecified cervical region | CPT/HCPCS: 99214 ==

== ENCOUNTER → 2022-11-04 14:40 | Outpatient (BNVA) | payer MEDICARE, OTHER, SELFPAY | PROVIDERS: PCP Family Medicine; Visit Provider Anesthesiology Pain Medicine | DX: M47.812 Spondylosis without myelopathy or radiculopathy, cervical region (principal) | CPT/HCPCS: 64633; 64634; J1030 ==

== ENCOUNTER 2022-12-03 12:32 | Outpatient (CLI) | payer MEDICARE, OTHER, SELFPAY ==
--- NOTE | 2022-12-03 12:38 | XR_ITS ---
WS: [id number] Exam: XR thoracic spine min 4V [id number] Date/Time of Exam: 12/03/2022 12:54 PM Reason For Exam: M54.9 - Dorsalgia, unspecified No fracture or dislocation. Minimal spondylosis and degenerative disc change. Neurostimulator electro karen are seen in the midthoracic spinal canal. Slight levoscoliosis. IMPRESSION: 1. Mild degenerative changes and minimal scoliosis. 2. No fracture or malalignment.
== END 2022-12-03 12:33 | disposition home or self-care (01) ==
PROVIDERS: PCP Family Medicine; Visit Provider Anesthesiology Pain Medicine
DX: M47.814 Spondylosis without myelopathy or radiculopathy, thoracic region; M51.36 Other intervertebral disc degeneration, lumbar region; M41.9 Scoliosis, unspecified; Z87.828 Personal history of other (healed) physical injury and trauma; M48.02 Spinal stenosis, cervical region; M47.22 Other spondylosis with radiculopathy, cervical region; M51.9 Unspecified thoracic, thoracolumbar and lumbosacral intervertebral disc disorder; M50.90 Cervical disc disorder, unspecified, unspecified cervical region; M79.601 Pain in right arm; M79.602 Pain in left arm
CPT/HCPCS: 72074; 99214

== ENCOUNTER → 2023-03-05 10:23 | Outpatient (BNVA) | payer MEDICARE, OTHER, SELFPAY | PROVIDERS: PCP Family Medicine; Visit Provider Anesthesiology Pain Medicine | DX: M51.9 Unspecified thoracic, thoracolumbar and lumbosacral intervertebral disc disorder; M47.22 Other spondylosis with radiculopathy, cervical region; M50.90 Cervical disc disorder, unspecified, unspecified cervical region; M41.9 Scoliosis, unspecified | CPT/HCPCS: 99214 ==

== ENCOUNTER 2023-04-16 10:48 | Outpatient (CLI) | payer MEDICARE, OTHER, SELFPAY ==
--- NOTE | 2023-04-16 10:54 | XR_ITS ---
WS: [id number] XR chest 2V* [id number] REASON FOR EXAM: CHRONIC COUGH FINDINGS: Moderate tortuosity of the thoracic aorta. Normal heart size. Calcified granulomas disease in both hemithoraces. No active pulmonary parenchymal or pleural disease is noted. Dorsal column stimulator thoracic spine T7-T8 level. IMPRESSION: No acute chest abnormality.
== END 2023-04-16 10:49 | disposition home or self-care (01) ==
LOC: RAD 10:49
PROVIDERS: PCP Family Medicine; Visit Provider Family Medicine
DX: M51.9 Unspecified thoracic, thoracolumbar and lumbosacral intervertebral disc disorder (principal); M47.22 Other spondylosis with radiculopathy, cervical region; M50.90 Cervical disc disorder, unspecified, unspecified cervical region; R05.9 Cough, unspecified
CPT/HCPCS: 71046; 99213

== ENCOUNTER 2023-06-29 12:25 | Outpatient (CLI) | payer MEDICARE, OTHER, SELFPAY ==
[2023-06-29 14:07] LABS: Prostate Specific Antigen < 0.014 ng/mL (0-4)
== END 2023-06-29 12:26 | disposition home or self-care (01) ==
LOC: LAB 12:27
PROVIDERS: PCP Family Medicine; Visit Provider Nurse Practitioner Family
DX: Z85.46 Personal history of malignant neoplasm of prostate (principal)
CPT/HCPCS: 36415; 84153

== ENCOUNTER → 2023-09-17 12:46 | Outpatient (BNVA) | payer MEDICARE, OTHER, SELFPAY | PROVIDERS: PCP Family Medicine; Visit Provider Anesthesiology Pain Medicine | DX: M51.9 Unspecified thoracic, thoracolumbar and lumbosacral intervertebral disc disorder; M47.22 Other spondylosis with radiculopathy, cervical region; M50.90 Cervical disc disorder, unspecified, unspecified cervical region | CPT/HCPCS: 99214 ==

== ENCOUNTER 2024-03-24 12:32 | Outpatient (CLI) | payer MEDICARE, OTHER, SELFPAY ==
--- NOTE | 2024-03-24 12:36 | USCV_ITS ---
Yuri Ryan Age: 73 Gender: M : 1950 Exam Date: 03/24/2024 12:52 Ordering Phys: Dalia Mo MD Technologist: Exam Location: [facility] [place] Indication: cp BP: 120 / 70 HR: 69 Rhythm: Sinus Technical Quality: Adequate MEASUREMENTS (Male / Female) Normal Values 2D ECHO LV Diastolic Diameter PLAX 4.1 cm 4.2 - 5.9 / 3.9 - 5.3 cm IVS Diastolic Thickness 1.7 cm 0.6 - 1.0 / 0.6 - 0.9 cm IVS Systolic Thickness 1.8 cm LVPW Diastolic Thickness 1.4 cm 0.6 - 1.0 / 0.6 - 0.9 cm LVPW Systolic Thickness 2.0 cm LVOT Diameter 2.5 cm LV Ejection Fraction 2D Teich 62.6 % LV Ejection Fraction MOD 4C 68.0 % LV Ejection Fraction MOD 2C 67.3 % LV Ejection Fraction 2C AL 69.9 % LA Diameter 2.1 cm RA Systolic Volume 4C AL 51.9 ml RA Systolic Volume 4C MOD 50.4 ml Aorta at Sinotubular Diameter 3.3 cm IVC Diameter 1.1 cm M-MODE LA Ao Ratio MM 0.8 AV Cusp Separation MM 2.0 cm DOPPLER AV Peak Velocity 132.0 cm/s LVOT Peak Velocity 84.0 cm/s AV Area Cont Eq vti 4.7 cm squared AV Area Cont Eq pk 3.2 cm squared MV Peak Velocity 100.0 cm/s MV Area PHT 3.3 cm squared Mitral E to A Ratio 1.3 TV Peak Velocity 285.0 cm/s TR Peak Velocity 287.0 cm/s TR Peak Gradient 32.9 mmHg TV Peak E Velocity 104.0 cm/s PV Peak Velocity 107.0 cm/s FINDINGS Left Ventricle Normal left ventricular size and systolic function, EF 65%.moderate left ventricular hypertrophy. No regional wall motion abnormalities. Right Ventricle The right ventricle is normal in size and function. Right Atrium The right atrium is normal in size. Left Atrium The left atrium is normal in size. Mitral Valve Mild mitral valve regurgitation. Aortic Valve Moderate calcium in the noncoronary cusp of the aortic valve.trace aortic valve regurgitation. Tricuspid Valve Trace tricuspid valve regurgitation. Estimated pulmonary artery peak systolic pressure 36 mmHg Pulmonic Valve Mild pulmonary valve regurgitation. Pericardium Normal pericardium without effusion. Aorta Normal ascending aorta dimension. IVC Normal inferior vena cava. CONCLUSIONS Normal left ventricular size and systolic function, EF 65%.moderate left ventricular hypertrophy. No regional wall motion abnormalities. Mild mitral valve regurgitation. Moderate calcium in the noncoronary cusp of the aortic valve.trace aortic valve regurgitation. Trace tricuspid valve regurgitation. Estimated pulmonary artery peak systolic pressure 36 mmHg. Mild pulmonary valve regurgitation. There is no pericardial effusion. There are no intracardiac masses. No similar previous studies are available for comparison Dr Ramos Tyson MD [facility] (Electronically Signed) Final Date: 24 March 2024 22:02 S
== END 2024-03-24 12:33 | disposition home or self-care (01) ==
LOC: RAD 12:33
PROVIDERS: PCP Family Medicine; Visit Provider Family Medicine
DX: I51.7 Cardiomegaly (principal); I70.0 Atherosclerosis of aorta; Z82.49 Family history of ischemic heart disease and other diseases of the circulatory system
CPT/HCPCS: 93306

== ENCOUNTER → 2024-04-12 14:14 | Outpatient (BNVA) | payer MEDICARE, OTHER, SELFPAY | PROVIDERS: PCP Family Medicine; Visit Provider Anesthesiology Pain Medicine | DX: M54.9 Dorsalgia, unspecified (principal); M51.9 Unspecified thoracic, thoracolumbar and lumbosacral intervertebral disc disorder; M47.22 Other spondylosis with radiculopathy, cervical region; M50.90 Cervical disc disorder, unspecified, unspecified cervical region | CPT/HCPCS: 36415; 80048; 99214 ==

== ENCOUNTER → 2024-04-14 10:33 | Outpatient (BNVA) | payer MEDICARE, OTHER, SELFPAY | PROVIDERS: PCP Family Medicine; Referring Provider Family Medicine; Visit Provider Student in an Organized Health Care Education/Training Program | DX: K22.70 Barrett's esophagus without dysplasia (principal) | CPT/HCPCS: 99204 ==

== ENCOUNTER 2024-04-26 08:47 | Day surgery (SDC) | payer MEDICARE, OTHER, SELFPAY ==
[2024-04-26 09:06] VITALS: BP 146/77; PULSE 61; RESP 18; TEMP 36.2; O2SAT 98; BMI 23.8
--- NOTE | 2024-04-26 09:20 | P.ANESASSM_ITS ---
Pre-Anesthetic Assessment Height/Weight: Height 1.83 m Weight 79.832 kg Temp Pulse Resp BP Pulse Ox O2 Del Method 97.1 F L 61 18 146/77 98 Room Air 04/26/24 09:06 04/26/24 09:06 04/26/24 09:06 04/26/24 09:06 04/26/24 09:06 04/26/24 09:06 Operation Date: 04/26/24 09:45 Proposed Procedures p EGD 20904, K22.70(Not Applicable) - Cullen Mckeon MD Familial anesthetic complications: NV Was Beta Minnie taken within 24 hours: N/A Was Clonidine taken within 24 hours: N/A Last intake: Intake Last Liquid Date 04/25/24 Last Liquid Time 00:00 Last Solid Date 04/25/24 Last Solid Time 21:00 Social No alcohol and No tobacco Exam alert, oriented x 3, clear to auscultation bilaterally and regular rate & rhythm Airway Submandibular: within normal limits Cervical ROM: Other (Decreased ROM) Mallampati: Class III Dentition: full (Bridge) History/ROS No significant history except as noted and No significant complaints Pulmonary None reported CV/HEM None reported None reported BPH Hepatic None reported GI Gastroesophageal Reflux Disease (None this morning, uses medications) and Hiatal Hernia (Repaired 2011) Metabolic None reported Musc/skel Lower Back Pain and Osteoarthritis/DJD Spinal cord stimulator Neuropsych Depression, Headache and Neuropathy Anesthetic Plan ASA status: 3 Anesthesia: Anesthesia Evaluation, General and MAC Risk of > 500 ml blood loss (7ml/kg in children): No Medications/Allergies Home Medications Medication Instructions Recorded Confirmed Last Taken Type cetirizine 10 mg capsule (Zyrtec) 10 mg PO DAILY 04/21/19 04/21/24 04/25/24 History gabapentin 600 mg tablet 600 mg PO QDAY 04/21/19 04/21/24 04/25/24 History meclizine 25 mg tablet 25 mg PO DAILY 04/21/19 04/21/24 04/25/24 History pantoprazole 40 mg tablet,delayed 40 mg PO QDAY 04/21/19 04/21/24 04/25/24 History release tamsulosin 0.4 mg capsule 0.4 mg PO QDAY 04/21/19 04/21/24 04/25/24 History sildenafil 100 mg tablet See Rx Instructions .Route 03/13/20 04/25/24 04/25/24 Rx .COMPLEX sexual activity #20 tabs fluticasone propionate 50 1 spray intranasal DAILY 10/18/20 04/21/24 04/25/24 History mcg/actuation nasal spray,suspension (Flonase Allergy Relief) hydrocodone 5 mg-acetaminophen 325 1 tab PO Q6H PRN pain #20 tabs 10/18/20 04/21/24 04/25/24 Rx mg tablet ondansetron HCl 4 mg tablet 4 mg PO Q6H PRN nausea and 10/18/20 04/21/24 04/25/24 Rx (Zofran) vomiting #20 tabs ropinirole 0.5 mg tablet 0.5 mg PO QDAY #30 tabs 10/28/21 04/21/24 04/25/24 Rx levocetirizine 5 mg tablet 5 mg PO DAILY 12/03/21 04/21/24 04/25/24 History duloxetine 30 mg capsule,delayed 30 mg PO DAILY #30 caps 12/03/22 04/21/24 04/25/24 Rx release (Cymbalta) mirabegron 50 mg tablet,extended 50 mg PO DAILY 09/17/23 04/21/24 04/25/24 History release 24 hr (Myrbetriq) meloxicam 15 mg tablet 15 mg PO DAILY pain #30 tabs 04/12/24 04/21/24 04/25/24 Rx tizanidine 4 mg tablet 4 mg PO BID PRN muscle spasticity 04/20/24 04/21/24 04/25/24 Rx #60 tabs Allergies Allergy/AdvReac Type Severity Reaction Status Date / Time vaccine adjuvant system, Allergy Intermediate Hives, Verified 04/26/24 09:03 AS01B liposomal itching [From Shingrix (PF)] varicella-zoster virus Allergy Intermediate Hives, Verified 04/26/24 09:03 glycoprotein E, recombinant itching [From Shingrix (PF)] [facility] Anesthesia Medical History History of colon polyps GERD (gastroesophageal reflux disease) History of cholesteatoma Chronic migraine without aura, intractable, with status migrainosus Sensorineural hearing loss, bilateral Spinal cord stimulator status Erectile dysfunction Lower urinary tract symptoms (LUTS) History of prostate cancer Spondylolisthesis of cervical region Lumbar disc disease Cervical radiculopathy due to degenerative joint disease of spine Surgical History H/O esophagogastroduodenoscopy (02/14/21) hiatal hernia, gastritis Status post colonoscopy (02/14/21) diverticulosis, rectal polyp, internal hemorrhoids S/P laparoscopic appendectomy (10/18/20) History of tonsillectomy Status post left inguinal hernia repair History of repair of hiatal hernia History of carpal tunnel release of both wrists History of cholecystectomy Family History Mother , at age 90 Dementia Heart disease Father , AT AGE 82 Cancer ESOPHAGEAL Other CAD (coronary artery disease) Parkinson disease Social History Smoking and tobacco/nicotine status: never used tobacco/nicotine Second hand smoke exposure: No Alcohol intake: current Alcohol intake frequency: holidays/special occasions only Alcohol type: wine Substance/Drug Use: never Household members: spouse Marital status: Current occupational status: retired Data Anesthesia Cardiac Studies: Echocardiogram 03/24/24
--- NOTE | 2024-04-26 09:24 | W.PM.OPSUD ---
Surgery/Procedure H&P Update DATE OF PROCEDURE: April 26, 2024 DATE H&P PERFORMED: 04/14/24 PLANNED PROCEDURE: Operation Date: 04/26/24 09:45 Proposed Procedures p EGD 11420, K22.70(Not Applicable) - Cullen Mckeon MD
[2024-04-26 09:52] VITALS: BP 111/57; PULSE 65; RESP 12; TEMP 36.2; O2SAT 96
[2024-04-26 10:21] VITALS: BP 121/63; PULSE 72; RESP 16; O2SAT 98
--- NOTE | 2024-04-26 10:27 | ANE.PACU2 ---
Inpatient post-anesthesia follow up: Airway intact: Yes Vital signs: Temperature 97.2 F Pulse Rate 72 Respiratory Rate 16 Blood Pressure 121/63 Pulse Oximetry 98 Oxygen Delivery Me thod Room Air Oxygen Flow Rate Fraction of Inspir ed Oxygen Hydration adequate: Yes Nausea and vomiting: No Pain level: 1 Mental status: Baseline
== END 2024-04-26 10:27 | disposition home or self-care (01) ==
PROVIDERS: PCP Family Medicine; Visit Provider Student in an Organized Health Care Education/Training Program
PROC: 0DJ08ZZ Inspection of Upper Intestinal Tract, Via Natural or Artificial Opening Endoscopic (ICD-10-PCS; principal; 2024-04-26 09:45)
DX: K22.70 Barrett's esophagus without dysplasia (principal); K44.9 Diaphragmatic hernia without obstruction or gangrene; K29.70 Gastritis, unspecified, without bleeding; N40.0 Benign prostatic hyperplasia without lower urinary tract symptoms; K21.9 Gastro-esophageal reflux disease without esophagitis; M19.90 Unspecified osteoarthritis, unspecified site
CPT/HCPCS: 43239; 88305; J2704

== ENCOUNTER → 2024-05-05 10:24 | Outpatient (BNVA) | payer MEDICARE, OTHER, SELFPAY | PROVIDERS: PCP Family Medicine; Visit Provider Student in an Organized Health Care Education/Training Program | DX: Z09 Encounter for follow-up examination after completed treatment for conditions other than malignant neoplasm (principal) | CPT/HCPCS: 99213 ==

== ENCOUNTER → 2024-05-16 15:18 | Outpatient (BNVA) | payer MEDICARE, OTHER, SELFPAY | PROVIDERS: PCP Family Medicine; Visit Provider Anesthesiology Pain Medicine | DX: M50.90 Cervical disc disorder, unspecified, unspecified cervical region (principal); M47.22 Other spondylosis with radiculopathy, cervical region; M51.9 Unspecified thoracic, thoracolumbar and lumbosacral intervertebral disc disorder | CPT/HCPCS: 99214 ==

== ENCOUNTER → 2024-05-31 12:57 | Outpatient (BNVA) | payer MEDICARE, OTHER, SELFPAY | PROVIDERS: PCP Family Medicine; Visit Provider Internal Medicine | DX: R07.9 Chest pain, unspecified (principal); I45.10 Unspecified right bundle-branch block; I51.7 Cardiomegaly | CPT/HCPCS: 93005; 99204 ==

== ENCOUNTER 2024-06-03 11:59 | Outpatient (CLI) | payer MEDICARE, OTHER, SELFPAY ==
--- NOTE | 2024-06-03 12:00 | CTR_ITS ---
PROCEDURE INFORMATION: Exam: CT Lumbar Spine Without and With Contrast Exam date and time: 06/03/2024 12:07 PM Age: 74 years old Clinical indication: Low back pain; Prior surgery; Surgery date: 6+ months; Surgery type: Spinal cord stimulator, appy, gb; HX of prostate cancer; Additional info: M54.16 - radiculopathy, lumbar region TECHNIQUE: Imaging protocol: Computed tomography of the lumbar spine without and with contrast. Radiation optimization: All CT scans at this facility use at least one of these dose optimization techniques: automated exposure control; mA and/or kV adjustment per patient size (includes targeted exams where dose is matched to clinical indication); or iterative reconstruction. Contrast material: OMNI 350; Contrast volume: 100 ml; Contrast route: INTRAVENOUS (IV); COMPARISON: MR lumbar spine wo con* [id number] 02/29/2020 10:07 AM RADIATION DOSE METRICS: Total DLP (mGy-cm): 815.98 FINDINGS: Bones/joints: No acute fracture. Slight grade 1 retrolisthesis at L1-L2 and L5-S1. Mild leftward curvature of the lumbar spine. Moderate to advanced multilevel lumbar spondylosis, most pronounced at L4-L5 with partial osseous fusion and a moderately large anterior osteophyte. Multilevel bilateral facet arthropathy. Disc bulge, ligamentum flavum thickening, bilateral facet arthropathy at L1-L2 results in at least mild central canal stenosis and [id number] bilateral neural foraminal narrowing. Similar findings at L2-L3 with moderate to severe central canal stenosis and moderate to severe bilateral neural foraminal narrowing. Similar findings also at L3-L4 with severe spinal stenosis and severe bilateral foraminal narrowing, right slightly worse than left. Mild spinal stenosis at L4-L5 with moderate right and mild left neural foraminal narrowing related to degenerative changes as at other levels. Vasculature: Atherosclerotic aortic calcifications. Soft tissues: Unremarkable. CT/CT lumbar spine wo/w con [id number] IMPRESSION: 1. No acute findings. 2. Moderate to advanced multilevel lumbar spondylosis with areas of moderate to severe central canal stenosis and severe bilateral neural foraminal narrowing as above.
[2024-06-03] MEDS: iohexol 350 mg/mL 500 mL Btl (per mL) IV (12:21)
== END 2024-06-03 12:00 | disposition home or self-care (01) ==
PROVIDERS: PCP Family Medicine; Visit Provider Anesthesiology Pain Medicine
DX: M54.16 Radiculopathy, lumbar region (principal); M47.896 Other spondylosis, lumbar region; M48.061 Spinal stenosis, lumbar region without neurogenic claudication; M43.16 Spondylolisthesis, lumbar region; M43.17 Spondylolisthesis, lumbosacral region; M43.8X6 Other specified deforming dorsopathies, lumbar region; M25.78 Osteophyte, vertebrae; M51.369 Other intervertebral disc degeneration, lumbar region without mention of lumbar back pain or lower extremity pain; R93.7 Abnormal findings on diagnostic imaging of other parts of musculoskeletal system; I70.0 Atherosclerosis of aorta
CPT/HCPCS: 72133

== ENCOUNTER → 2024-06-13 14:28 | Outpatient (BNVA) | payer MEDICARE, OTHER, SELFPAY | PROVIDERS: PCP Family Medicine; Visit Provider Anesthesiology Pain Medicine | DX: M54.9 Dorsalgia, unspecified (principal); M51.9 Unspecified thoracic, thoracolumbar and lumbosacral intervertebral disc disorder; M47.22 Other spondylosis with radiculopathy, cervical region; M50.90 Cervical disc disorder, unspecified, unspecified cervical region | CPT/HCPCS: 99214 ==

== ENCOUNTER → 2024-07-05 13:09 | Outpatient (BNVA) | payer MEDICARE, OTHER, SELFPAY | PROVIDERS: PCP Family Medicine; Visit Provider Anesthesiology Pain Medicine | DX: M47.816 Spondylosis without myelopathy or radiculopathy, lumbar region (principal); M54.2 Cervicalgia | CPT/HCPCS: 64633; 64634; 64636; J1010; J3490; J9999 ==

== ENCOUNTER → 2024-07-19 12:57 | Outpatient (BNVA) | payer MEDICARE, OTHER, SELFPAY | PROVIDERS: PCP Family Medicine; Visit Provider Anesthesiology Pain Medicine | DX: M47.812 Spondylosis without myelopathy or radiculopathy, cervical region (principal); M54.2 Cervicalgia | CPT/HCPCS: 64633; 64634; J1010; J9999 ==

== ENCOUNTER 2024-08-01 14:10 | Outpatient (CLI) | payer MEDICARE, OTHER, SELFPAY ==
--- NOTE | 2024-08-01 14:19 | XRR_ITS ---
PROCEDURE INFORMATION: Exam: XR Right Hip Exam date and time: 08/01/2024 2:26 PM Age: 74 years old Clinical indication: Right hip; Right posterior hip pain x 6 mo with no known injury; Additional info: Pain in R hip TECHNIQUE: Imaging protocol: Radiologic exam of the right hip. Views: 1 view hip with pelvis when performed. COMPARISON: CT abdomen pelvis w con* [id number] 10/01/2020 9:41 PM FINDINGS: Bones/joints: There is no fracture or joint dislocation. Bony alignment is preserved. Mild subchondral calcinosis of the acetabulum. XR/XR hip RT 2-3V wo/w pel* [id number] IMPRESSION: Mild DJD.
== END 2024-08-01 14:11 | disposition home or self-care (01) ==
LOC: RAD 14:13
PROVIDERS: PCP Family Medicine; Visit Provider Family Medicine
DX: M54.2 Cervicalgia (principal); M16.11 Unilateral primary osteoarthritis, right hip; M11.251 Other chondrocalcinosis, right hip; M54.9 Dorsalgia, unspecified; M51.9 Unspecified thoracic, thoracolumbar and lumbosacral intervertebral disc disorder; M47.22 Other spondylosis with radiculopathy, cervical region
CPT/HCPCS: 73502; 99214

== ENCOUNTER → 2024-09-12 10:19 | Outpatient (BNVA) | payer MEDICARE, OTHER, SELFPAY | PROVIDERS: PCP Family Medicine; Visit Provider Anesthesiology Pain Medicine | DX: M54.9 Dorsalgia, unspecified (principal); M54.2 Cervicalgia; M51.9 Unspecified thoracic, thoracolumbar and lumbosacral intervertebral disc disorder; M47.22 Other spondylosis with radiculopathy, cervical region | CPT/HCPCS: 99214 ==

== ENCOUNTER → 2024-09-21 10:53 | Outpatient (BNVA) | payer MEDICARE, OTHER, SELFPAY | PROVIDERS: PCP Family Medicine; Visit Provider Anesthesiology Pain Medicine | DX: M16.11 Unilateral primary osteoarthritis, right hip (principal) | CPT/HCPCS: 20610; J1010; J3490 ==

== ENCOUNTER → 2024-09-27 11:23 | Outpatient (BNVA) | payer MEDICARE, OTHER, SELFPAY | PROVIDERS: PCP Family Medicine; Visit Provider Anesthesiology Pain Medicine | DX: M48.9 Spondylopathy, unspecified (principal); M54.6 Pain in thoracic spine; M54.9 Dorsalgia, unspecified; M54.2 Cervicalgia; M47.22 Other spondylosis with radiculopathy, cervical region | CPT/HCPCS: 72072; 99214 ==

== ENCOUNTER → 2024-10-11 13:52 | Outpatient (BNVA) | payer MEDICARE, OTHER, SELFPAY | PROVIDERS: PCP Family Medicine; Visit Provider Anesthesiology Pain Medicine | DX: M47.816 Spondylosis without myelopathy or radiculopathy, lumbar region (principal); M54.9 Dorsalgia, unspecified | CPT/HCPCS: 64493; 64494; 64495; J3490; J9999 ==

== ENCOUNTER → 2024-10-25 09:54 | Outpatient (BNVA) | payer MEDICARE, OTHER, SELFPAY | PROVIDERS: PCP Nurse Practitioner Family; Visit Provider Anesthesiology Pain Medicine | DX: M54.9 Dorsalgia, unspecified (principal); M54.2 Cervicalgia; M51.9 Unspecified thoracic, thoracolumbar and lumbosacral intervertebral disc disorder; M47.22 Other spondylosis with radiculopathy, cervical region | CPT/HCPCS: 99214 ==

== ENCOUNTER → 2024-11-02 13:46 | Outpatient (BNVA) | payer MEDICARE, OTHER, SELFPAY | PROVIDERS: PCP Nurse Practitioner Family; Visit Provider Anesthesiology Pain Medicine | DX: M47.816 Spondylosis without myelopathy or radiculopathy, lumbar region (principal); M54.9 Dorsalgia, unspecified | CPT/HCPCS: 64493; 64494; 64495; J3490; J9999 ==

== ENCOUNTER → 2024-11-21 15:16 | Outpatient (BNVA) | payer MEDICARE, OTHER, SELFPAY | PROVIDERS: PCP Nurse Practitioner Family; Visit Provider Anesthesiology Pain Medicine | DX: M54.9 Dorsalgia, unspecified (principal); M54.2 Cervicalgia; M51.9 Unspecified thoracic, thoracolumbar and lumbosacral intervertebral disc disorder; M47.22 Other spondylosis with radiculopathy, cervical region | CPT/HCPCS: 99214 ==

== ENCOUNTER → 2024-11-30 13:02 | Outpatient (BNVA) | payer MEDICARE, OTHER, SELFPAY | PROVIDERS: PCP Nurse Practitioner Family; Visit Provider Anesthesiology Pain Medicine | DX: M47.816 Spondylosis without myelopathy or radiculopathy, lumbar region (principal) | CPT/HCPCS: 64635; 64636; J1100; J9999 ==

== ENCOUNTER → 2024-12-13 09:18 | Outpatient (BNVA) | payer MEDICARE, OTHER, SELFPAY | PROVIDERS: PCP Nurse Practitioner Family; Visit Provider Anesthesiology Pain Medicine | DX: M54.9 Dorsalgia, unspecified (principal); M54.2 Cervicalgia; M47.22 Other spondylosis with radiculopathy, cervical region; M51.9 Unspecified thoracic, thoracolumbar and lumbosacral intervertebral disc disorder | CPT/HCPCS: 99214 ==

== ENCOUNTER → 2025-01-09 09:58 | Outpatient (BNVA) | payer MEDICARE, OTHER, SELFPAY | PROVIDERS: PCP Nurse Practitioner Family; Visit Provider Anesthesiology Pain Medicine | DX: M54.9 Dorsalgia, unspecified (principal); M54.2 Cervicalgia; M47.22 Other spondylosis with radiculopathy, cervical region | CPT/HCPCS: 99214 ==

== ENCOUNTER → 2025-01-23 14:52 | Outpatient (BNVA) | payer MEDICARE, OTHER, SELFPAY | PROVIDERS: PCP Nurse Practitioner Family; Visit Provider Anesthesiology Pain Medicine | DX: M79.18 Myalgia, other site (principal); M47.22 Other spondylosis with radiculopathy, cervical region; M51.9 Unspecified thoracic, thoracolumbar and lumbosacral intervertebral disc disorder | CPT/HCPCS: 20553; 99214; J1010; J3490 ==

== ENCOUNTER → 2025-02-01 13:11 | Outpatient (BNVA) | payer MEDICARE, OTHER, SELFPAY | PROVIDERS: PCP Nurse Practitioner Family; Visit Provider Student in an Organized Health Care Education/Training Program | DX: M70.61 Trochanteric bursitis, right hip (principal) | CPT/HCPCS: 20610; 73502; 99204; J3301; J3490; J9999 ==

== ENCOUNTER 2025-02-14 17:11 | Outpatient (CLI) | payer MEDICARE, OTHER, SELFPAY ==
--- NOTE | 2025-02-14 17:14 | CT_ITS ---
WS: [id number] CT ABDOMEN AND PELVIS NONCONTRAST HISTORY: WEIGHT LOSS UNINTENTIONAL, UNSPECIFIED ABDOMINAL PAIN TECHNIQUE: Imaging performed through the abdomen and pelvis. Coronal and sagittal reformats are submitted. All CT scans at [facility] use at least one of these dose optimization techniques: automated exposure control; mA and/or kV adjustment per patient size (includes targeted exams where dose is matched to clinical indication); or iterative reconstruction. DLP: 317.44 mGy.cm COMPARISON: 10/01/2020 Lower thorax: Benign granuloma LEFT lung base. Heart size is normal. Small hiatal hernia. Liver: Normal size liver. No mass or bile duct dilatation. Gallbladder: Prior cholecystectomy. Pancreas: Normal size and attenuation. Normal pancreatic duct. No pancreatitis or mass. Spleen: Normal. Adrenal glands: Normal. No mass. Right kidney: Normal size kidney. 3.6 cm cyst upper pole. No renal obstruction. Left kidney: Normal size kidney with no mass or hydronephrosis. Aorta: Mild atherosclerosis abdominal aorta with no aneurysm. No free fluid, intraperitoneal air or significant lymphadenopathy. GI tract: Nondistended stomach. No small bowel obstruction. Moderate diffuse constipation. Prior appendectomy. There are a few scattered diverticula within the sigmoid colon. No evidence for acute diverticulitis. Abdominal wall: Negative. No hernia. Pelvis: Prostate gland is enlarged encroaching into the urinary bladder. Heterogeneous prostate. No free fluid. Prostate seeds are noted from prostate cancer treatment. Osseous structures: Advanced degenerative changes in the lumbar spine. Disc spaces are narrowed with osteophytosis. Central foraminal stenosis is suspected at several levels. Mild degenerative joint disease at the hips. CT/CT abdomen pelvis wo con [id number] IMPRESSION: 1. No acute abdominal or pelvic abnormalities. 2. Prior cholecystectomy. 3. Moderate diffuse constipation. 4. No GI tract obstruction. 5. No renal obstruction. 6. RIGHT renal cyst, 3.6 cm. 7. No ascites or adenopathy. 8. Prior appendectomy. 9. Small hiatal hernia.
== END 2025-02-14 17:12 | disposition home or self-care (01) ==
LOC: RAD 17:12
PROVIDERS: PCP Nurse Practitioner Family; Visit Provider Nurse Practitioner Family
DX: R63.4 Abnormal weight loss (principal); R10.9 Unspecified abdominal pain; Z90.49 Acquired absence of other specified parts of digestive tract; K59.09 Other constipation; N28.1 Cyst of kidney, acquired; Z90.89 Acquired absence of other organs; K44.9 Diaphragmatic hernia without obstruction or gangrene
CPT/HCPCS: 74176

== ENCOUNTER 2025-02-20 12:18 | Outpatient (RCR) | payer MEDICARE, OTHER, SELFPAY | END 2025-03-05 23:59 | disposition home or self-care (01) | LOC: SPT 12:18 | PROVIDERS: PCP Nurse Practitioner Family; Visit Provider Student in an Organized Health Care Education/Training Program | DX: M70.61 Trochanteric bursitis, right hip (principal) | CPT/HCPCS: 97110; 97161 ==

== ENCOUNTER 2025-03-06 06:30 | Outpatient (RCR) | payer MEDICARE, OTHER, SELFPAY | END 2025-03-22 09:58 | disposition home or self-care (01) | LOC: SPT 06:30 | PROVIDERS: PCP Nurse Practitioner Family; Visit Provider Student in an Organized Health Care Education/Training Program | DX: M70.61 Trochanteric bursitis, right hip (principal) | CPT/HCPCS: 97110 ==